=== PATIENT | male | born 1940 | race Caucasian/White ===

== ENCOUNTER 2017-08-04 18:53 | Emergency (ER) | payer MEDICARE ==
[~2017-08-04] VITALS: Ht 167.6 cm; Wt 85.4 kg
[~2017-08-04 18:53] MED LIST: BENADRYL25 M1 OR; CATAPRES0.1 MG PO; CIPRO500 MG PO; CLONIDINE0.1 MG PO; CLONIDINE0.1 MG/24 TD; FISH OIL1000 MG PO; FLONASE NASAL50 MCG; LISINOPRIL10 MG PO; LISINOPRIL5 MG PO; LOPRESSOR50 M1 PO; METOPROL TAR50 MG PO; METOPROLOL50 MG PO; MULTIVITAMIN OR; NO HOME MEDS; POLYTRIM OS; PRILOSEC20 MG PO
[2017-08-04 20:00] LABS: HEMATOCRIT 44.5 % (39.0-50.0); IMMATURE GRANULOCYTES 0.9 % (0.0-1.0); MEAN CELL VOLUME 94.1 fL CALC (80.0-100.0); MEAN CORPUSCULAR HGB 31.7 pG CALC (26.0-32.0); MEAN CORPUSCULAR HGB CONC 33.7 g/L CALC (32.0-36.0); NEUT# 7.08 thou/uL (1.82-7.42); RED BLOOD COUNT 4.73 mill/uL (4.70-6.10); RED CELL DISTRI WIDTH 13.8 % (11.5-15.5)
[2017-08-04 20:17] LABS: ALBUMIN 4.3 g/dL (3.2-5.0); BILIRUBIN, TOTAL 0.7 mg/dL (0.0-1.4); CREATININE 2.6 mg/dL (0.7-1.3); POTASSIUM 5.1 mmol/l (3.5-5.1); TOTAL PROTEIN 7.1 g/dL (6.3-8.2)
[2017-08-04] MEDS ORDERED: LOMOTIL2.5 MG PO (21:13)
[2017-08-04 21:49] VITALS: BP 166/88
== END 2017-08-04 21:50 | disposition home or self-care (01) ==
LOC: ED 18:53
PROVIDERS: Family Medicine
DX: A08.4 Viral intestinal infection, unspecified (principal)

== ENCOUNTER 2022-05-19 19:59 | Emergency (ER) | payer MEDICARE ==
[~2022-05-19] VITALS: Ht 167.6 cm; Wt 77.0 kg
[~2022-05-19 19:59] MED LIST changes: +LOMOTIL2.5 MG PO
[2022-05-19 21:01] VITALS: BP 191/94
[2022-05-19 21:51] LABS: BASO% 1.1 % (0-3); EOS% 3.3 % (0-8); HEMATOCRIT 34.2 % (39.0-50.0); HEMOGLOBIN 11.1 g/dl (14.0-18.0); IMMATURE GRANULOCYTES 0.6 % (0.0-5.0); LYMPH% 19.7 % (15-41); MEAN CELL VOLUME 95.3 fL CALC (80.0-100.0); MEAN CORPUSCULAR HGB 30.9 pG CALC (26.0-32.0); MEAN CORPUSCULAR HGB CONC 32.5 g/dL CAL (32.0-36.0); MONO% 16.7 % (2-13); NEUT# 3.16 thou/uL (1.82-7.42); NEUT% 58.6 % (42-76); RED BLOOD COUNT 3.59 mill/uL (4.70-6.10); RED CELL DISTRI WIDTH 13.7 % (11.5-15.5)
[2022-05-19 22:04] LABS: ALBUMIN 4.2 g/dL (3.2-5.0); POTASSIUM 4.9 mmol/l (3.5-5.1); TOTAL PROTEIN 6.9 g/dL (6.3-8.2)
[2022-05-19 22:05] VITALS: BP 201/101
[2022-05-19 22:05] LABS: BILIRUBIN, TOTAL 0.3 mg/dL (0.0-1.4); CREATININE 4.1 mg/dL (0.7-1.3)
[2022-05-19 22:11] LABS: URINE BILIRUBIN - DIPSTICK NEGATIVE (NEGATIVE); URINE BLOOD DIPSTICK SMALL (NEGATIVE); URINE COLOR YELLOW; URINE GLUCOSE - DIPSTICK NEGATIVE (NEGATIVE); URINE KETONE NEGATIVE (NEGATIVE); URINE LEUK ESTERASE NEGATIVE (NEGATIVE); URINE NITRITE - DIPSTICK NEGATIVE (Negative); URINE PROTEIN - DIPSTICK 100 mg/dL (NEG-TRACE); URINE SPECIFIC GRAVITY >=1.030; URINE UROBILINOGEN - DIPSTICK 0.2 E.U./dL (0.2)
[2022-05-19 22:12] LABS: URINE RBC 0-2 RBC/hpf (0-5); URINE WBC 0-2 WBC/hpf (0-5)
[2022-05-19 22:30] VITALS: BP 182/101
[2022-05-19] MEDS ORDERED: AMLODIPINE BESYL5 MG PO (22:47)
[2022-05-19 23:00] VITALS: BP 186/108
[2022-05-19 23:30] VITALS: BP 189/99
[2022-05-20 00:54] VITALS: BP 118/59
== END 2022-05-20 00:06 | disposition home or self-care (01) ==
LOC: ED 19:59
PROVIDERS: Family Medicine
DX: J06.9 Acute upper respiratory infection, unspecified (principal); I12.0 Hypertensive chronic kidney disease with stage 5 chronic kidney disease or end stage renal disease; N18.5 Chronic kidney disease, stage 5; Z90.5 Acquired absence of kidney; Z85.528 Personal history of other malignant neoplasm of kidney; Z20.822 Contact with and (suspected) exposure to COVID-19